=== PATIENT | male | born 1955 | race Caucasian/White ===

== ENCOUNTER 2020-05-29 17:44 | Emergency (ER) | payer OTHER ==
[~2020-05-29 17:44] MED LIST: ADVIL200 M1 PO; LOTREL 5-20 MG1 EACH PO; SUPER B-50 COM1 EACH PO; VITAMIN D35000 UNI1 PO; ZOCOR20 MG PO
[2020-05-29 19:52] LABS: BASOPHIL 1.2 % (0-2); EOSINOPHIL 3.3 % (0-7); HCT 44.2 % (42.0-52.0); HGB 14.6 g/dl (13.2-18.0); LYMPHOCYTE 18.9 % (15-48); MCH 30.7 pg (25.0-31.0); MCV 93.1 fL (78.0-100.0); MPV 10.1 fL (6.0-9.5); NEUTROPHIL 64.4 % (41-80); NRBC 0; PLT 266 K/uL (150-400); RBC 4.75 M/uL (4.70-6.00); RDW 12.7 % (11.5-14.0); WBC 8.9 K/uL (4.0-10.5)
[2020-05-29 20:10] LABS: ALBUMIN 4.5 g/dL (3.4-5.0); BILIRUBIN - TOTAL 0.6 mg/dL (0.2-1.0); BUN/CREAT RATIO (CALC) 20.4 RATIO; CREATININE 0.98 mg/dL (0.67-1.17); GLOBULIN (CALCULATION) 3.6 g/dL; POTASSIUM 4.5 mmol/L (3.5-5.1); TOTAL PROTEIN 8.1 g/dL (6.4-8.2)
== END 2020-05-29 23:11 | disposition home or self-care (01) ==
LOC: FER 17:44
PROVIDERS: Emergency Medicine
DX: R20.2 Paresthesia of skin (principal); R00.1 Bradycardia, unspecified; I10 Essential (primary) hypertension; Z88.5 Allergy status to narcotic agent
CPT/HCPCS: 36415; 70450; 71045; 80053; 84484; 85025; 93005

== ENCOUNTER 2020-10-20 16:30 | Emergency (ER) | payer OTHER | END 2020-10-20 17:19 | disposition home or self-care (01) | LOC: FER 16:30 | DX: S01.312A Laceration without foreign body of left ear, initial encounter (principal); I10 Essential (primary) hypertension; Z88.5 Allergy status to narcotic agent; Z23 Encounter for immunization; Z79.899 Other long term (current) drug therapy; W22.03XA Walked into furniture, initial encounter; Y92.009 Unspecified place in unspecified non-institutional (private) residence as the place of occurrence of the external cause | CPT/HCPCS: 90471; 90715 ==